=== PATIENT | male | born 1985 | race Caucasian/White ===

== ENCOUNTER 2019-03-18 21:21 | Emergency (ER) | payer OTHER ==
[2019-03-18 21:25] VITALS: BP 136/80
--- NOTE | 2019-03-18 21:37 | ED Physician Documentation ---
History of Present Illness - Stated complaint Stated Complaint: LEFT INDEX FINGER LAC - Chief complaint Chief Complaint: Laceration - History obtained from History obtained from: Patient - History of Present Illness Timing: Prior to arrival - Additonal information Additional information: Patient is a previously healthy right-handed 33 year old male presenting with small superficial laceration to the distal tuft finger pad of his left index finger without nail involvement or other complication. Patient reports minimal pain and mild bleeding, as well as mild numbness, but no significant change in range of motion or strength. No other injuries. Tetanus current. No other improving or worsening factors noted. Review of Systems Skin: reports: Laceration (s) Musculoskeletal: reports: Extremity pain Neurologic: reports: Numbness. denies: Focal weakness PD PAST MEDICAL HISTORY - Past Medical History Past Medical History: No - Past Surgical History Past Surgical History: No - Present Medications Home Medications: Ambulatory Orders Medication Instructions Recorded Confirmed No Known Home Medications 03/18/19 03/18/19 - Allergies Allergies/Adverse Reactions: Allergies Allergy/AdvReac Type Severity Reaction Status Date / Time No Known Drug Allergies Allergy Verified 03/18/19 21:25 PD ED PE NORMAL - Vitals Vital signs reviewed: Yes - General General: Alert and oriented X 3, No acute distress, Well developed/nourished - HEENT HEENT: Atraumatic, Moist mucous membranes - Neck Neck: Supple, no meningeal sign - Cardiac Cardiac: Strong equal pulses - Respiratory Respiratory: No respiratory distress - Derm Derm: Normal color, Warm and dry, No rash, Other (Less than 1 inch curved laceration to distal pad of left index finger without nail involvement, damage to underlying structures, or other complication.) - Extremities Extremities: No deformity, No tenderness to palpate - Neuro Neuro: Alert and oriented X 3, No motor deficit, No sensory deficit - Psych Psych: Normal mood, Normal affect Results - Vitals Vitals: Vital Signs - 24 hr 03/18/19 21:24 Temperature 36.3 C L Heart Rate 69 Respiratory 16 Rate Blood Pressure 136/80 H O2 Saturation 99 Oxygen O2 Source Room air Procedures - Laceration (location) Finger left Length in cm: 1 Wound type: Curved Neurovascular status: Sensory intact, Motor intact, Vascular intact Tendon involvement: Tendon intact Wound Preparation: Irrigated copiously NS Skin layer closure: Dermabond Other: Patient tolerated well, No complications, Neurovascular intact, Tetanus UTD PD MEDICAL DECISION MAKING - ED course Complexity details: re-evaluated patient, considered differential, d/w patient ED course: Patient presenting with small laceration to the left distal index finger without nail involvement and no significant damage to underlying structures. Do not have concern for retained foreign body or bony abnormality such as dislocation, fracture, open fracture. No evidence of tendon injury or infection. Tetanus current and did not require updating. Wound appropriately cleaned and closed in the ED. Discussed wound care, return precautions, and appropriate follow-up. Patient voiced understanding and is comfortable with discharge plan. Departure - Departure Disposition: 01 Home, Self Care Clinical Impression: Laceration Condition: Good Instructions: ED Laceration All Follow-Up: your,doctor [Other] - Within 3 Days Comments: Please keep wound clean and dry using running water and soap only to clean. Do not submerge. Dermabond will come off on its own, please do not remove the glue. Recommend elevation, ice application, ibuprofen/Tylenol as needed. Please be gentle with the finger, particularly the next several days to avoid reopening of the wound. Return to the ED sooner if experience new injury, opening of the wound, infection of the wound, or other concerns. Discharge Date/Time: 03/18/19 22:08
== END 2019-03-18 22:08 | disposition home or self-care (01) ==
LOC: ED 21:21
DX: S61.211A Laceration without foreign body of left index finger without damage to nail, initial encounter (principal); W26.0XXA Contact with knife, initial encounter; Y93.89 Activity, other specified
CPT/HCPCS: 12001; 99282